=== PATIENT | male | born 1960 | race Hispanic/Latino ===

== ENCOUNTER 2019-11-05 10:56 | Emergency (ER) | payer MEDICARE, OTHER | END 2019-11-05 14:02 | disposition home or self-care (01) | LOC: EDH 10:56 | DX: S63.601A Unspecified sprain of right thumb, initial encounter (principal); S16.1XXA Strain of muscle, fascia and tendon at neck level, initial encounter; Z88.6 Allergy status to analgesic agent; Z72.0 Tobacco use; V59.9XXA Occupant (driver) (passenger) of pick-up truck or van injured in unspecified traffic accident, initial encounter; Y93.89 Activity, other specified; Y92.488 Other paved roadways as the place of occurrence of the external cause; Y99.8 Other external cause status | CPT/HCPCS: 73130 ==

== ENCOUNTER → 2020-09-04 | Outpatient (CLI) | payer OTHER | END | disposition home or self-care (01) | LOC: RAH 10:44 | PROVIDERS: ATTEND Internal Medicine | DX: I70.293 Other atherosclerosis of native arteries of extremities, bilateral legs (principal) | CPT/HCPCS: 93925 ==

== ENCOUNTER → 2022-07-26 | Outpatient (CLI) | payer OTHER ==
[~2022-07-26] VITALS: Ht 170.2 cm; Wt 93.0 kg
[~2022-07-26] MED LIST: REGADENOSON 0.4 MG/5 ML PF SYG IVP SCH
== END | disposition home or self-care (01) ==
LOC: SHCH 08:24
PROVIDERS: ATTEND Internal Medicine Cardiovascular Disease
DX: Z01.810 Encounter for preprocedural cardiovascular examination (principal); C20 Malignant neoplasm of rectum; I73.9 Peripheral vascular disease, unspecified; I65.23 Occlusion and stenosis of bilateral carotid arteries; I10 Essential (primary) hypertension; Z86.73 Personal history of transient ischemic attack (TIA), and cerebral infarction without residual deficits
CPT/HCPCS: 78452; 96374; 93017; J2785; A9500 ×2

== ENCOUNTER → 2022-10-22 | Outpatient (CLI) | payer OTHER | END | disposition home or self-care (01) | LOC: RAH 12:27 | PROVIDERS: ATTEND Internal Medicine | DX: R22.1 Localized swelling, mass and lump, neck (principal) | CPT/HCPCS: 76536 ==

== ENCOUNTER → 2022-11-09 | Outpatient (CLI) | payer OTHER | END | disposition home or self-care (01) | LOC: RAH 11:09 | PROVIDERS: ATTEND Internal Medicine | DX: S10.93XD Contusion of unspecified part of neck, subsequent encounter (principal); X58.XXXD Exposure to other specified factors, subsequent encounter | CPT/HCPCS: 76536 ==

== ENCOUNTER 2023-07-22 13:00 | Inpatient (IN) | payer OTHER ==
[2023-07-21 15:26] VITALS: BP 141/72; PULSE 70; RESP 17
[2023-07-21 15:28] LABS: BASOPHILS # (AUTO) 0.04 K/uL (0.00-0.20); BASOPHILS % (AUTO) 0.4 % (0.0-5.0); EOSINOPHILS % (AUTO) 4.3 % (0.0-8.0); HEMATOCRIT 40.4 % (42-54); IMMATURE GRANULOCYTE ABSOLUTE 0.06 K/uL (0-1); LYMPHOCYTES # (AUTO) 2.7 K/uL (1.0-4.8); LYMPHOCYTES % (AUTO) 28.5 % (21.0-51.0); MEAN CORPUSCULAR HEMOGLOBIN 30.3 pg (27.0-33.0); MEAN CORPUSCULAR HGB CONC 32.4 g/dL (32.0-36.0); MEAN CORPUSCULAR VOLUME 93.5 fL (79-99); MONOCYTES # (AUTO) 0.7 K/uL (0.1-1.0); MONOCYTES % (AUTO) 7.9 % (3.0-13.0); NEUTROPHILS # (AUTO) 5.5 K/uL (1.8-7.7); NEUTROPHILS % (AUTO) 58.3 % (40.0-77.0); PLATELET COUNT (AUTO) 156 K/uL (130-400); RED BLOOD CELL COUNT(AUTO) 4.32 MIL/uL (4.50-6.20); RED CELL DISTRIBUTION WIDTH 13.7 % (11.0-15.5); WHITE BLOOD COUNT (AUTO) 9.4 K/uL (4.8-10.8)
[2023-07-21 15:38] LABS: INR < 0.93 (0.85-1.15); PROTHROMBIN TIME 10.3 SEC (9.6-11.6)
[2023-07-21 15:39] LABS: PARTIAL THROMBOPLASTIN TIME 27.7 SEC (26.3-35.5)
[2023-07-21 15:40] LABS: ALBUMIN 3.2 g/dL (3.5-5.0); BILIRUBIN,TOTAL 0.5 mg/dL (0.2-1.0); CREATININE 0.8 mg/dL (0.5-1.5); POTASSIUM 3.9 mmol/L (3.5-5.1); TOTAL PROTEIN, SERUM 7.2 g/dL (6.0-8.3)
[~2023-07-22] VITALS: Ht 172.7 cm; Wt 94.7 kg
[~2023-07-22 13:00] MED LIST changes: +ALBUTEROL IH; +ALPR0.255 PO; +ATOR40TA71 PO; +BUSP15TA3 PO; +CETI10TA57 PO; +DONE10TA43 PO; +LEVA0.6333 IH; +METO-409 PO; +OMEP20CA12 PO; +ONDA4TAB10 PO; +QUET25TA36 PO; -REGADENOSON 0.4 MG/5 ML PF SYG IVP SCH; +SERT-439 PO; +TAMS-1 PO; +TICA90TA PO
[2023-07-26] VITALS (35 sets, daily range): BP systolic 99–156; BP diastolic 65–87; PULSE 83–105; RESP 11–21; O2SAT 83–98
[2023-07-26] MEDS ORDERED: 0.9%NACL 1000ML 1,000 ML IV ONE (06:43)
[2023-07-26] MEDS ORDERED: MEROPENEM 1 GM VIAL ONE (06:44)
[2023-07-26] MEDS ORDERED: PROPOFOL 10 MG/ML 20ML VIAL IV ONE (07:27)
[2023-07-26] MEDS ORDERED: GLYCOPYRROLATE 1 MG/5 ML SYRINGE ONE (07:27)
[2023-07-26] MEDS ORDERED: LIDOCAINE PF 100MG/5ML (2%) SYRINGE 5ML ONE (07:27)
[2023-07-26] MEDS ORDERED: ROCURONIUM 10MG/1ML SYR 10 MG/ML ML ONE ×2 (07:27→08:28)
[2023-07-26] MEDS ORDERED: FENTANYL CITRATE PF 50 MCG/1 ML 2ML VIAL ONE (07:27)
[2023-07-26] MEDS ORDERED: HYDROMORPHONE 1 MG INJ ONE ×2 (07:31→10:21)
[2023-07-26] MEDS ORDERED: FAMOTIDINE 20MG VIAL IV ONE (07:31)
[2023-07-26] MEDS ORDERED: SUGAMMADEX SODIUM 200 MG/2 ML VIAL IV ONE (07:31)
[2023-07-26] MEDS ORDERED: BUPIVACAINE/PF 0.25% 30ML VIAL IJ ONE (08:09)
[2023-07-26] MEDS ORDERED: ONDANSETRON 4MG INJ ONE (08:21)
[2023-07-26] MEDS ORDERED: NEOSTIGMINE 5MG/5ML SYR IV ONE (09:01)
[2023-07-26] MEDS ORDERED: HYDROMORPHONE 0.5 MG SYG (0.5MG/0.5ML) IVP PRN (09:30)
[2023-07-26] MEDS: HYDROMORPHONE 1 MG INJ ONE ×2 (09:55→10:14)
[2023-07-26] MEDS: LACTATED RINGERS 1000ML 1,000 ML IV SCH (11:38)
[2023-07-26] MEDS ORDERED: ACETAMINOPHEN 500 MG TABLET PO PRN (13:00)
[2023-07-26] MEDS ORDERED: ALBUTEROL 0.083% 2.5 MG/3 ML INH IH PRN (13:00)
[2023-07-26] MEDS ORDERED: NON-FORMULARY MEDICATION 1 EACH (Buspirone HCl 15 MG) PO SCH (14:00)
[2023-07-26] MEDS: BUSPIRONE HCL 5 MG TABLET PO SCH ×2 (14:25→21:10)
[2023-07-26] MEDS ORDERED: NON-FORMULARY MEDICATION 1 EACH (Donepezil HCl 10 MG) PO SCH (21:00)
[2023-07-26] MEDS ORDERED: NON-FORMULARY MEDICATION 1 EACH (Metoprolol Succinate 100 MG) PO SCH (21:00)
[2023-07-26] MEDS: DONEPEZIL HCL 5 MG TAB PO SCH (21:09)
[2023-07-26] MEDS: METOPROLOL SUCCINATE 50 MG TAB.SR.24H PO SCH (21:10)
[2023-07-26] MEDS: ATORVASTATIN 40 MG TABLET PO SCH (21:10)
[2023-07-26] MEDS: QUETIAPINE FUMARATE 25 MG TAB PO SCH (21:10)
[2023-07-26] MEDS: HYDROCODONE/ACETAMINOPHEN 5/325 MG TAB PO PRN (21:13)
[2023-07-26] MEDS: HEPARIN 5,000 UNIT VIAL SQ SCH (21:19)
[2023-07-27] VITALS (11 sets, daily range): BP systolic 116–139; BP diastolic 69–77; PULSE 72–106; RESP 16–20; O2SAT 95–100
[2023-07-27 06:31] LABS: BASOPHILS # (AUTO) 0.06 K/uL (0.00-0.20); BASOPHILS % (AUTO) 0.5 % (0.0-5.0); EOSINOPHILS # (AUTO) 0.25 K/uL (0.00-0.70); HEMATOCRIT 39.9 % (42-54); IMMATURE GRANULOCYTE ABSOLUTE 0.06 K/uL (0-1); LYMPHOCYTES # (AUTO) 2.8 K/uL (1.0-4.8); LYMPHOCYTES % (AUTO) 21.6 % (21.0-51.0); MEAN CORPUSCULAR HEMOGLOBIN 29.9 pg (27.0-33.0); MEAN CORPUSCULAR HGB CONC 32.1 g/dL (32.0-36.0); MEAN CORPUSCULAR VOLUME 93.2 fL (79-99); MONOCYTES # (AUTO) 1.3 K/uL (0.1-1.0); MONOCYTES % (AUTO) 9.9 % (3.0-13.0); NEUTROPHILS # (AUTO) 8.4 K/uL (1.8-7.7); NEUTROPHILS % (AUTO) 65.5 % (40.0-77.0); PLATELET COUNT (AUTO) 156 K/uL (130-400); RED BLOOD CELL COUNT(AUTO) 4.28 MIL/uL (4.50-6.20); RED CELL DISTRIBUTION WIDTH 13.8 % (11.0-15.5); WHITE BLOOD COUNT (AUTO) 12.8 K/uL (4.8-10.8)
[2023-07-27 06:37] LABS: CREATININE 0.8 mg/dL (0.5-1.5); HEMOGLOBIN A1C 6.2 % (4.0-6.0); POTASSIUM 3.9 mmol/L (3.5-5.1)
[2023-07-27] MEDS: HEPARIN 5,000 UNIT VIAL SQ SCH (06:45)
[2023-07-27] MEDS: LACTATED RINGERS 1000ML 1,000 ML IV SCH ×2 (06:47→18:58)
[2023-07-27] MEDS: CETIRIZINE HCL 5 MG TABLET PO SCH (08:58)
[2023-07-27] MEDS: SERTRALINE HCL 50 MG TABLET PO SCH (08:59)
[2023-07-27] MEDS: BUSPIRONE HCL 5 MG TABLET PO SCH ×3 (08:59→21:31)
[2023-07-27] MEDS ORDERED: NON-FORMULARY MEDICATION 1 EACH (Cetirizine HCl 10 MG) PO SCH (09:00)
[2023-07-27] MEDS ORDERED: NON-FORMULARY MEDICATION 1 EACH (Omeprazole 20 MG) PO SCH (09:00)
[2023-07-27] MEDS: HYDROCODONE/ACETAMINOPHEN 5/325 MG TAB PO PRN ×4 (09:01→21:31)
[2023-07-27] MEDS: TAMSULOSIN HCL 0.4 MG CAP.ER.24H PO SCH (09:07)
[2023-07-27] MEDS: TICAGRELOR 90 MG TABLET PO SCH ×2 (09:07→21:31)
[2023-07-27] MEDS: PANTOPRAZOLE 40 MG TAB DR PO SCH (09:07)
[2023-07-27] MEDS: ONDANSETRON 4MG INJ IVP PRN (18:55)
[2023-07-27] MEDS: ALPRAZOLAM 0.25 MG TABLET PO PRN (21:30)
[2023-07-27] MEDS: ATORVASTATIN 40 MG TABLET PO SCH (21:30)
[2023-07-27] MEDS: QUETIAPINE FUMARATE 25 MG TAB PO SCH (21:30)
[2023-07-27] MEDS: METOPROLOL SUCCINATE 50 MG TAB.SR.24H PO SCH (21:31)
[2023-07-27] MEDS: DONEPEZIL HCL 5 MG TAB PO SCH (21:31)
[2023-07-28] VITALS (9 sets, daily range): BP systolic 117–144; BP diastolic 62–91; PULSE 69–94; RESP 18–20; O2SAT 94–98
[2023-07-28] MEDS ORDERED: SIMETHICONE 80 MG TAB.CHEW PO PRN (03:30)
[2023-07-28] MEDS: HYDROCODONE/ACETAMINOPHEN 5/325 MG TAB PO PRN ×2 (04:40→11:21)
[2023-07-28 06:36] LABS: BASOPHILS # (AUTO) 0.04 K/uL (0.00-0.20); BASOPHILS % (AUTO) 0.3 % (0.0-5.0); EOSINOPHILS # (AUTO) 0.16 K/uL (0.00-0.70); EOSINOPHILS % (AUTO) 1.3 % (0.0-8.0); HEMATOCRIT 35.5 % (42-54); IMMATURE GRANULOCYTE ABSOLUTE 0.08 K/uL (0-1); LYMPHOCYTES # (AUTO) 1.7 K/uL (1.0-4.8); LYMPHOCYTES % (AUTO) 13.6 % (21.0-51.0); MEAN CORPUSCULAR HEMOGLOBIN 30.1 pg (27.0-33.0); MEAN CORPUSCULAR VOLUME 91.3 fL (79-99); MONOCYTES # (AUTO) 1.2 K/uL (0.1-1.0); MONOCYTES % (AUTO) 9.7 % (3.0-13.0); NEUTROPHILS # (AUTO) 9.5 K/uL (1.8-7.7); NEUTROPHILS % (AUTO) 74.5 % (40.0-77.0); PLATELET COUNT (AUTO) 150 K/uL (130-400); RED BLOOD CELL COUNT(AUTO) 3.89 MIL/uL (4.50-6.20); RED CELL DISTRIBUTION WIDTH 13.9 % (11.0-15.5); WHITE BLOOD COUNT (AUTO) 12.8 K/uL (4.8-10.8)
[2023-07-28 06:46] LABS: CREATININE 0.8 mg/dL (0.5-1.5); POTASSIUM 3.6 mmol/L (3.5-5.1)
[2023-07-28] MEDS: PANTOPRAZOLE 40 MG TAB DR PO SCH (09:27)
[2023-07-28] MEDS: CETIRIZINE HCL 5 MG TABLET PO SCH (09:28)
[2023-07-28] MEDS: BUSPIRONE HCL 5 MG TABLET PO SCH ×2 (09:28→14:15)
[2023-07-28] MEDS: SERTRALINE HCL 50 MG TABLET PO SCH (09:28)
[2023-07-28] MEDS: TAMSULOSIN HCL 0.4 MG CAP.ER.24H PO SCH (09:28)
[2023-07-28] MEDS: TICAGRELOR 90 MG TABLET PO SCH (09:28)
[2023-07-28] MEDS: ALPRAZOLAM 0.25 MG TABLET PO PRN (14:15)
[2023-07-28] MEDS: LACTATED RINGERS 1000ML 1,000 ML IV SCH (14:17)
[2023-07-28] MEDS: ONDANSETRON 4MG INJ IVP PRN (15:09)
== END 2023-07-28 20:31 | disposition home or self-care (01) | DRG 331 ==
LOC: DAHIP 07-26 06:28 → 3CH 07-26 11:00
PROVIDERS: ADMIT Surgery; ATTEND Surgery
PROC: 0DBB0ZZ Excision of Ileum, Open Approach (ICD-10-PCS; principal; 2023-07-26 07:30)
PROC: 0DQB0ZZ Repair Ileum, Open Approach (ICD-10-PCS; 2023-07-26 07:30)
DX: Z43.2 Encounter for attention to ileostomy (principal); E66.9 Obesity, unspecified; E78.5 Hyperlipidemia, unspecified; I10 Essential (primary) hypertension; K43.5 Parastomal hernia without obstruction or gangrene; N40.0 Benign prostatic hyperplasia without lower urinary tract symptoms; G47.33 Obstructive sleep apnea (adult) (pediatric); Z85.048 Personal history of other malignant neoplasm of rectum, rectosigmoid junction, and anus; Z86.73 Personal history of transient ischemic attack (TIA), and cerebral infarction without residual deficits; Z68.34 Body mass index [BMI] 34.0-34.9, adult
CPT/HCPCS: 36415; 80048; 80053; 83036; 85025; 85610; 85730; 86850; 86900; 86901; 88307; 93005; 94660; G0378; J1170; J1644; J2001; J2185; J2405; J2704; J2710; J3010; J3490; J7030; J7120; A4215; A4221; A4222; A4223; A4600; A4663; A4930; A6260; J0665